=== PATIENT | female | born 1995 | race Caucasian/White ===

== ENCOUNTER 2023-11-10 13:21 | Emergency (ER) | payer OTHER, SELFPAY ==
[2023-11-10 13:44] VITALS: BP 129/80; PULSE 80; RESP 18; TEMP 37; O2SAT 98
--- NOTE | 2023-11-10 13:52 | DI.RAD.S_ITS ---
PROCEDURE: XR CHEST 2V INDICATIONS: covid positive, chest pain per notes TECHNIQUE: 2 views of the chest were acquired. COMPARISON: None. FINDINGS: Moderate bilateral diffuse predominantly perihilar and lower lobe peribronchial thickening with mild patchy lower lobe opacities may be related to reported history of viral infection, bronchitis, asthma or other process. No pneumothorax, no pleural effusion, no lobar consolidation. Cardiopericardial silhouette and pulmonary vasculature within normal limits. Surgical changes and devices: None. Mediastinum: Mediastinal contours are normal. Bones and chest wall: No radiographic evidence of bony abnormalities. IMPRESSION: Moderate bilateral peribronchial thickening with mild lower lobe opacities may be related to reported history of viral infection, bronchitis, asthma or other process. Continued follow-up is needed. If symptoms persist or worsen, CT could be performed. Dictated by: Jose Gregorio M.D. on 11/10/2023 at 15:23 Approved by: Jose Gregorio M.D. on 11/10/2023 at 15:26
--- NOTE | 2023-11-10 14:01 | EKG_ITS ---
[address] [address] Test Date: 2023-11-10 Pat Name: Anayeli Mueller Department: Room: Gender: Female Configuration Developer: GURMEET : 1995 Requested By: Order Number: [id number] Reading MD: Raehem August Measurements Intervals [place] Rate: 79 P: 54 ID: 150 QRS: 74 QRSD: 82 T: 31 QT: 352 QTc: 403 Interpretive Statements Normal sinus rhythm with sinus arrhythmia Nonspecific T wave abnormality Electronically Signed On 11-10-2023 18:03:45 PDT by Raheem August
--- NOTE | 2023-11-10 15:28 | ED_ITS ---
HPI - Chest Pain <Maureen Collazo PA-C - Last Filed: 11/10/23 17:17> General Chief Complaint: Chest Pain Stated Complaint: COVD+, SOB, Chest Px Time Seen by Provider: 11/10/23 15:28 Source: patient Mode of arrival: Ambulatory Limitations: no limitations History of Present Illness HPI narrative: Patient is a very pleasant 28-year-old female who presents to the emergency room department today cough, cold, congestion, chest pain, and some shortness of breath. She took a COVID test at home tested positive prior to being seen here in the emergency department. Onset of symptoms started over last 24 hours and increasing intensity. Recent travel. But not to any high area where there would be any concerns for TB. Patient not feeling well. Attempting [id number] supportive therapy. Up-to-date on all her immunizations. No fever at home. No other physical complaints. Patient came into the emergency department due to the chest discomfort and chest pain. Was concerned that she might be having a heart attack. Related Data Allergies Allergy/AdvReac Type Severity Reaction Status Date / Time No Known Drug Allergies Allergy Verified 11/10/23 13:44 Review of Systems <Maureen Collazo PA-C - Last Filed: 11/10/23 17:17> Review of Systems Narrative: Negative except as above ENT Comments: Sore throat Cardiovascular Comments: Increased heart rate, chest pain Respiratory Comments: Cough congestion Musculoskeletal Comments: Body aches Patient History <Maureen Collazo PA-C - Last Filed: 11/10/23 17:17> Social History Smoking Status: Current every day smoker Smoking Status: Current every day smoker tobacco type: cigarettes and vaping alcohol intake frequency: a few times a week Substance Use Type: does not use Exam <Maureen Collazo PA-C - Last Filed: 11/10/23 17:17> Initial Vital Signs Initial Vital Signs: Vital Signs Temperature 98.6 F 11/10/23 13:44 Pulse Rate 80 11/10/23 13:44 Respiratory Rate 18 11/10/23 13:44 Blood Pressure 129/80 11/10/23 13:44 Pulse Oximetry 98 11/10/23 13:44 Oxygen Delivery Method Room Air 11/10/23 13:44 Reviewed Const General: cooperative, healthy appearing, comfortable, well developed, well groomed, No acute distress and No in distress Nutritional Appearance: average body habitus and well nourished Orientation: Orientation [facility] Face and sinus: normal facial exam and sinuses nontender Mouth: oral mucosae normal Eyes Pupils: PERRL EOM: EOM intact bilaterally Chest Chest: other (No pain with deep inspiration, no pain with palpation) Resp Auscultation: clear to auscultation bilaterally, no bronchial breath sounds, no bronchovesicular breath sounds, no crackles, no rales, no rhonchi and no wheezes Cardio Rate: regular rate Rhythm: regular rhythm Heart Sounds: S1 normal and S2 normal Skin General: no rashes or lesions noted and turgor normal Neuro Cranial Nerves: CN's II-XI intact bilaterally Cognition: normal cognition Speech: speech normal Gait: normal gait Motor: muscle tone normal throughout Psych Mental Status: mental status grossly normal Mood: congruent mood Affect: normal affect Attitude: cooperative Thought Process: normal Thought Content: normal Judgment: judgment good <DO Annalisa Bowman Last Filed: 11/11/23 08:39> Initial Vital Signs Initial Vital Signs: Vital Signs Temperature 98.6 F 11/10/23 13:44 Pulse Rate 80 11/10/23 13:44 Respiratory Rate 18 11/10/23 13:44 Blood Pressure 129/80 11/10/23 13:44 Pulse Oximetry 98 11/10/23 13:44 Oxygen Delivery Method Room Air 11/10/23 13:44 Course <Maureen Collazo PA-C - Last Filed: 11/10/23 17:17> Orders Ordered: ED Orders 11/10/23 13:52 XR chest 2V Stat 11/10/23 14:04 EKG-12 Lead Stat Vital Signs Vital signs: Vital Signs - 8 hr 11/10/23 13:44 11/10/23 15:56 Temperature 98.6 F 98.4 F Pulse Rate 80 78 Respiratory Rate 18 18 Blood Pressure 129/80 105/69 Pulse Oximetry 98 98 Oxygen Delivery Method Room Air Room Air <DO nAnalisa Bowman Last Filed: 11/11/23 08:39> Orders Ordered: ED Orders 11/10/23 13:52 XR chest 2V Stat 11/10/23 14:04 EKG-12 Lead Stat Vital Signs Vital signs: Vital Signs - 8 hr 11/10/23 13:44 11/10/23 15:56 Temperature 98.6 F 98.4 F Pulse Rate 80 78 Respiratory Rate 18 18 Blood Pressure 129/80 105/69 Pulse Oximetry 98 98 Oxygen Delivery Method Room Air Room Air MDM - Chest Pain <Maureen Collazo PA-C - Last Filed: 11/10/23 17:17> Lab Data Lab results narrative: Patient took a home COVID test was positive Imaging Data Chest x-ray: Radiologist's Impression: [address] [address] XRay Report Signed Patient: Anayeli Mueller MR#: [id number] : 1995 Acct:[id number] Age/Sex: 28 / F Date of Service: 11/10/23 Loc: ED Accession Number: [id number] Procedure: XR chest 2V Ordering Provider: Baylee Walker D.O. PROCEDURE: XR CHEST 2V INDICATIONS: covid positive, chest pain per notes TECHNIQUE: 2 views of the chest were acquired. COMPARISON: None. FINDINGS: Moderate bilateral diffuse predominantly perihilar and lower lobe peribronchial thickening with mild patchy lower lobe opacities may be related to reported history of viral infection, bronchitis, asthma or other process. No pneumothorax, no pleural effusion, no lobar consolidation. Cardiopericardial silhouette and pulmonary vasculature within normal limits. Surgical changes and devices: None. Mediastinum: Mediastinal contours are normal. Bones and chest wall: No radiographic evidence of bony abnormalities. IMPRESSION: Moderate bilateral peribronchial thickening with mild lower lobe opacities may be related to reported history of viral infection, bronchitis, asthma or other process. Continued follow-up is needed. If symptoms persist or worsen, CT could be performed. Dictated by: Jose Gregorio M.D. on 11/10/2023 at 15:23 Approved by: Jose Gregorio M.D. on 11/10/2023 at 15:26 ECG Data Interpretation: [address] [address] Electrocardiogram Draft Patient: Anayeli Mueller MR#: [id number] : 1995 Acct:[id number] Age/Sex: 28 / F Date of Service: 11/10/23 Loc: ED Accession Number: [id number] Procedure: EKG-12 Lead Ordering Provider: Baylee Walker[address] [address] Test Date: 2023-11-10 Pat Name: Aanyeli Mueller Department: Room: Gender: Female Buildings Painter: GURMEET : 1995 Requested By: Order Number: [id number] Reading MD: Measurements Intervals [place] Rate: 79 P: 54 [place]: 150 QRS: 74 QRSD: 82 T: 31 QT: 352 QTc: 403 Interpretive Statements Normal sinus rhythm with sinus arrhythmia Nonspecific T wave abnormality MDM Narrative Medical decision making narrative: Pleasant 28-year-old female presents with cough, cold, congestion, chest pain, shortness of breath. Recent travel. COVID tests at home positive today. Patient presented due to chest pain concern for possible heart attack. EKG normal. Chest x-ray signs symptoms of viral infection. Patient has COVID. Reassurance Supportive therapy Education ED precautions Discussed CDC recommendations Differential diagnosis; upper respiratory infection, influenza, COVID. Substernal chest pain, costochondritis, musculoskeletal pain. <Baylee Walker, - Last Filed: 11/11/23 08:39> ECG Data Attestation: I personally reviewed and interpreted this ECG as follows: Interpretation: Dr. Walker-normal sinus rhythm rate 79 [place] interval 150 QRS 82 QTC 403 T-wave inversion noted in lead V1,V2 no ST elevations no depressions non pathologic Q- wave in lead [address] [address] Electrocardiogram Draft Patient: Anayeli Mueller MR#: [id number] : 1995 Acct:[id number] Age/Sex: 28 / F Date of Service: 11/10/23 Loc: ED Accession Number: [id number] Procedure: EKG-12 Lead Ordering Provider: Baylee Walker D.O[address] [address] Test Date: 2023-11-10 Pat Name: Anayeli Mueller Department: Room: Gender: Female Buildings Painter: GURMEET : 1995 Requested By: Order Number: [id number] Reading MD: Measurements Intervals [place] Rate: 79 P: 54 [place]: 150 QRS: 74 QRSD: 82 T: 31 QT: 352 QTc: 403 Interpretive Statements Normal sinus rhythm with sinus arrhythmia Nonspecific T wave abnormality Discharge Plan Departure Patient Disposition: Home Clinical Impression: COVID-19 Activity Restrictions/Additional Instructions: Your chest x-ray is negative for pneumonia, your COVID test came back positive. Unfortunately supportive therapy [id number], runny nose Afrin, sore throat throat lozenges, cough dry cough Delsym wet cough Mucinex. Next Vaporub, steam showers, plenty of rest, balanced diet, fluids, ibuprofen and Tylenol for fever, stay hydrated. Unfortunately this will take anywhere from a 7-10 days to completely clear. You will need to be at home until you are fever free and do not need any medications to control any of your symptoms. The new CDC guidelines are 5 days and then you are able go back to work. CDC guidelines for antivirals are over the age of 60, with major medical problems. I hope you feel better. Referrals: Miscellaneous,Doctor, [Primary Care Provider] - Stand Alone Forms: Patient Portal/API ED Sign-out <Baylee Walker DO - Last Filed: 11/11/23 08:39> Cosign ED Attending Stevenature Attestation: I was available for consultation.
[2023-11-10 15:56] VITALS: BP 105/69; PULSE 78; RESP 18; TEMP 36.9; O2SAT 98
== END 2023-11-10 15:57 | disposition home or self-care (01) ==
PROVIDERS: Emergency Provider Physician Assistant
DX: U07.1 COVID-19 (principal); I49.8 Other specified cardiac arrhythmias
CPT/HCPCS: 71046; 93005; 99281; 99284